=== PATIENT | female | born 1990 | race African-American/Black ===

== ENCOUNTER 2016-09-29 11:30 | Emergency (ER) | payer SELFPAY ==
[2016-09-29 11:50] LABS: Blood, Urine Negative (Negative); Glucose, Urine (Dipstick) Negative (Negative); Leukocyte Negative (Negative); Nitrite Negative (Negative); Protein, Urine (Dipstick) 30 mg/dL (Neg-Trace); pH, Urine 6.5 (5.0-9.0)
[2016-09-29 12:00] LABS: Clarity SL HAZY (Clear)
[2016-09-29 12:03] LABS: Bacteria/HPF Rare-Few HPF (None Seen); Icto Positive (Negative); RBC/HPF 0-3 HPF (0-3); Squamous Epithelial 0-3 HPF (0-3); WBC/HPF 0-3 HPF (0-3)
[2016-09-29 12:04] LABS: Pregnancy Test - Urine (BHCG) POSITIVE (NEGATIVE); Pregu Control Background? CLEAR/WHITE (CLR/WHITE); Pregu Control Bar Appear? YES (CONTROL BAR)
[2016-09-29] MEDS ORDERED: Ondansetron HCl/PF 4 MG/2 ML Vial ONE (12:05)
[2016-09-29] MEDS ORDERED: Acetaminophen 500 MG TAB ONE (12:13)
[2016-09-29 12:38] LABS: #Lymphocytes 1.1 thou/uL (1.20-3.40); #Monocytes 0.5 thou/uL (0.11-0.59); #Neutrophils 6.9 thou/uL (1.40-6.50); %Basophils 0.5 % (0.0-1.0); %Eosinophils 0.4 % (0.0-10.0); %Lymphocytes 12.9 % (21.0-51.0); %Monocytes 5.4 % (0.0-10.0); %Neutrophils 80.8 % (42.0-75.0); Hemoglobin 12.2 g/dL (12.0-16.0); Mean Corpuscular HGB CONC 32.5 g/dL (32.0-36.0); Mean Corpuscular Hemoglobin 29.3 pg (27.0-31.0); Mean Corpuscular Volume 90.3 fl (81.0-99.0); Mean Platelet Volume 9.2 fL (7.4-10.4); Platelet Count 163 thou/uL (130-400); RBC Distribution Width 13.7 % (11.5-14.5); Red Blood Cell (RBC) Count 4.16 mill/uL (4.20-5.40); White Blood Cell (WBC) Count 8.6 thou/uL (4.8-10.8)
[2016-09-29 12:40] LABS: ALT (SGPT) 7 U/L (8-55); AST (SGOT) 14 U/L (5-34); Albumin 3.8 g/dL (3.5-5.0); Alkaline Phosphatase 35 U/L (40-150); Anion Gap 16 mmol/L (10-20); BUN (Urea Nitrogen) 8 mg/dL (7.0-18.7); Bilirubin, Total 0.3 mg/dL (0.2-1.2); Calc. Creatinine Clearance 0 mL/min (70-130); Calcium 8.9 mg/dL (7.8-10.44); Carbon Dioxide 22 mmol/L (22-29); Chloride 104 mmol/L (98-107); Estimated GFR-MDRD Greater than 90; Globulin 3.2 g/dL (2.4-3.5); Glucose 98 mg/dL (70-105); Potassium 3.7 mmol/L (3.5-5.1); Sodium 138 mmol/L (136-145)
--- NOTE | 2016-09-29 12:46 | RAD ---
2 VIEWS OF CHEST: Date: 09/29/16 COMPARISON: None. HISTORY: Chest pain and cough for a week. FINDINGS: Two views of the chest show normal sized cardiomediastinal silhouette. There is no evidence of conso lidation, mass, or pleural effusion. The bones are unremarkable. IMPRESSION: No evidence of acute cardiopulmonary disease. POS: [facility]
== END 2016-09-29 13:20 | disposition home or self-care (01) ==
LOC: NAV ERS 11:30
DX: O99.511 Diseases of the respiratory system complicating pregnancy, first trimester (principal); J20.9 Acute bronchitis, unspecified; O21.9 Vomiting of pregnancy, unspecified; O99.331 Smoking (tobacco) complicating pregnancy, first trimester; F17.210 Nicotine dependence, cigarettes, uncomplicated
CPT/HCPCS: 71020; 80053; 81003; 81015; 81025; 84702; 85025; 93005; 96361; 96374; J2405

== ENCOUNTER 2016-12-08 04:07 | Emergency (ER) | payer OTHER, SELFPAY ==
[2016-12-08] MEDS ORDERED: Lidocaine 1% 20 ML MDV ONE (04:23)
[2016-12-08] MEDS ORDERED: Bacitracin Zinc 1 Packet ONE (04:53)
== END 2016-12-08 05:03 | disposition home or self-care (01) ==
LOC: NAV ERS 04:07
DX: O9A.212 Injury, poisoning and certain other consequences of external causes complicating pregnancy, second trimester (principal); S71.112A Laceration without foreign body, left thigh, initial encounter; Z3A.22 22 weeks gestation of pregnancy; Z87.891 Personal history of nicotine dependence; W25.XXXA Contact with sharp glass, initial encounter
CPT/HCPCS: 12002; 99282; J2001

== ENCOUNTER 2017-02-06 12:33 | Outpatient (CLI) | payer OTHER ==
--- NOTE | 2017-02-06 15:39 | ULT ---
OBSTETRIC SONOGRAM: History: Evaluate for size and dates. Third trimester . FINDINGS: Multiple transabdominal sonographic views of the gravid uterus shows a single intrauterine gestation in cephalic presentation. Grade I placenta is anterior. The uterine cervix is predominately obscured by the cranium. Amniotic fluid is within normal limits. Three vessel cord shows a normal insertion. F etal age limits anatomic detail. Measurements are as follows: BPD 31 weeks 6 days HC 31 weeks 6 days AC 30 weeks 6 days FL 31 weeks 6 days Estimated date of delivery based on today's sonogram is 04-08-17. Hadlock percentile equals 24%. IMPRESSION: Single viable intrauterine gestation with estimated gestational age based on today's sonogram of 31 w eeks 2 days. POS: [facility]
== END 2017-02-06 12:34 | disposition home or self-care (01) ==
LOC: NAV ULT 12:33
PROVIDERS: ATTEND Family Medicine
DX: O09.893 Supervision of other high risk pregnancies, third trimester (principal); Z3A.31 31 weeks gestation of pregnancy
CPT/HCPCS: 76805

== ENCOUNTER 2017-04-01 02:33 | Emergency (ER) | payer OTHER ==
[2017-04-01 03:09] LABS: Bilirubin Negative (Negative); Blood, Urine Large (Negative); Clarity Cloudy (Clear); Glucose, Urine (Dipstick) Negative (Negative); Leukocyte Large (Negative); Nitrite Negative (Negative); Protein, Urine (Dipstick) 100 mg/dL (Neg-Trace); Specific Gravity, Urine 1.025 (1.005-1.030)
[2017-04-01 03:17] LABS: Bacteria/HPF 3+ HPF (None Seen); RBC/HPF 21-50 HPF (0-3); WBC/HPF 21-50 HPF (0-3)
== END 2017-04-01 03:30 | disposition short-term general hospital (02) ==
LOC: NAV ERS 02:33
DX: O75.82 Onset (spontaneous) of labor after 37 completed weeks of gestation but before 39 completed weeks gestation, with delivery by (planned) cesarean section (principal); Z87.891 Personal history of nicotine dependence
CPT/HCPCS: 81003; 81015

== ENCOUNTER 2019-12-10 19:11 | Emergency (ER) | payer SELFPAY ==
[2019-12-10] MEDS ORDERED: Acetaminophen 500 MG TAB ONE (19:32)
[2019-12-10] MEDS ORDERED: AMOXicillin 250 MG CAP ONE (19:32)
[2019-12-10] MEDS ORDERED: Cephalexin 250 MG CAP ONE (19:35)
== END 2019-12-10 19:40 | disposition home or self-care (01) ==
LOC: NAV ERS 19:11
DX: L03.115 Cellulitis of right lower limb (principal); F17.210 Nicotine dependence, cigarettes, uncomplicated
CPT/HCPCS: 99283

== ENCOUNTER 2022-11-19 22:36 | Emergency (ER) | payer SELFPAY ==
[2022-11-19 23:47] LABS: Hematocrit 26.4 % (36.0-47.0); Hemoglobin 7.9 g/dL (12.0-16.0); Mean Corpuscular HGB CONC 30.1 g/dL (32.0-36.0); Mean Corpuscular Hemoglobin 24.5 pg (27.0-31.0); Mean Corpuscular Volume 81.6 fl (78.0-98.0); Mean Platelet Volume 9.8 fL (7.4-10.4); Platelet Count 105 10x3/uL (130-400); RBC Distribution Width 15.9 % (11.5-14.5); Red Blood Cell (RBC) Count 3.24 mill/uL (4.20-5.40)
[2022-11-19 23:48] LABS: #Basophils 0.1 thou/uL (0.0-0.2); #Eosinphils 0.1 thou/uL (0.0-0.7); #Lymphocytes 2.7 thou/uL (1.20-3.40); #Monocytes 0.7 thou/uL (0.11-0.59); #Neutrophils 7.5 thou/uL (1.40-6.50); %Basophils 0.6 % (0.0-1.0); %Eosinophils 0.9 % (0.0-10.0); %Lymphocytes 24.2 % (21.0-51.0); %Monocytes 6.4 % (0.0-10.0); %Neutrophils 67.8 % (42.0-75.0)
== END 2022-11-20 00:59 | disposition short-term general hospital (02) ==
LOC: NAV ERS 22:36
DX: O46.93 Antepartum hemorrhage, unspecified, third trimester (principal); O99.013 Anemia complicating pregnancy, third trimester; O99.333 Smoking (tobacco) complicating pregnancy, third trimester; F17.210 Nicotine dependence, cigarettes, uncomplicated; Z3A.30 30 weeks gestation of pregnancy
CPT/HCPCS: 84702; 85025; 86850; 86900; 86901

== ENCOUNTER 2022-11-27 11:57 | Emergency (ER) | payer SELFPAY | END 2022-11-27 12:47 | disposition home or self-care (01) | LOC: NAV ERS 11:57 | DX: Z48.817 Encounter for surgical aftercare following surgery on the skin and subcutaneous tissue (principal); D64.9 Anemia, unspecified; F17.210 Nicotine dependence, cigarettes, uncomplicated; Z79.899 Other long term (current) drug therapy ==